=== PATIENT | male | born 1990 | race Caucasian/White ===

== ENCOUNTER 2020-10-24 05:48 | Emergency (ER) | payer OTHER, SELFPAY ==
--- NOTE | 2020-10-24 06:04 | ED_ITS ---
HPI - Headache General Chief Complaint: Recheck/Abnormal Lab/Rx Stated Complaint: Headache and sore throat. Known COVID exposure Time Seen by Provider: 10/24/20 05:51 Source: patient Mode of arrival: Ambulatory Limitations: no limitations History of Present Illness HPI Narrative: 30M nonsmoker without medical problems presents with a vague generalized headache and sore throat since last night. He denies any specific provocation or palliation of his headache. He says it's moderate in nature and not associated with blurred vision, trouble with speech or other focal neurologic symptoms. He's had no injury or fever. He has a sore throat but no difficulty swallowing. He's had no cough, shortness of breath, or chest pain. He was recently out of state doing training with a friend who turned out to be COVID positive in the absence of any symptoms. The patient states he is here for a COVID test. MD Complaint: headache Onset (ago): hour(s) Onset description: gradual Location: diffuse Severity: mild Relieving factors: nothing Exacerbating factors: none Context: occurred at rest Treatments prior to arrival: none Review of Systems Constitutional Constitutional: Denies chills, Denies fatigue, Denies fever(s), Denies frequent falls, Reports headache(s), Denies lethargy and Denies weakness Eyes Eyes: Denies change in vision, Denies eye discharge, Denies irritation and Denies loss of vision ENT Ears, Nose, Mouth, and Throat: Denies change in voice, Denies dizziness, Reports headache(s), Denies neck pain, Reports sore throat and Denies throat swelling Cardiovascular Cardiovascular: Denies chest pain, Denies irregular heart rhythm, Denies lightheadedness, Denies palpitations, Denies dyspnea, Denies dyspnea on exertion and Denies orthopnea Respiratory Respiratory: Denies cough, Denies dyspnea, Denies dyspnea on exertion and Denies wheezing Gastrointestinal Gastrointestinal: Denies abdominal pain, Denies change in bowel habits, Denies diarrhea, Denies nausea and Denies vomiting Musculoskeletal Musculoskeletal: Denies neck pain and Denies numbness Integumentary/Breasts Skin/Breast: Denies pruritus, Denies erythema, Denies rash and Denies wounds Neurologic Neurologic: Denies behavioral changes, Denies confusion, Denies dizziness, Denies frequent falls, Reports headache(s), Denies loss of vision, Denies numbness and Denies weakness Psychiatric Psychiatric: Denies anxiety, Denies behavioral changes, Denies confusion, Denies depression, Denies homicidal ideation and Denies suicidal ideation Endocrine Endocrine: Denies fatigue, Denies flushing and Denies palpitations Hematologic/Lymphatic Hematologic/Lymphatic: Denies easy bruising Allergic/Immunologic Allergic/Immunologic: Denies urticaria, Denies throat swelling and Denies wheezing Patient History Social History Smoking Status: Never smoker Smoking Status: Never smoker alcohol intake frequency: 0-2 drinks per day Substance Use Type: does not use Exam Narrative Exam Narrative: GEN: AOx3 and in mild distress EYES: Pupils are equal, round, and reactive to light and accommodation. Extraoccular muscles are intact bilaterally. There is no subconjunctival hemorrhage or exudate. ENT: no erythema, tonsillar swelling or exuate. No lymphadenopathy CHEST: Lungs are clear to auscultation bilaterally and free of wheezes, rales, or rhonchi. Heart rate is regular rhythm, there are no murmurs, clicks, rubs, or gallops. There is no chest wall tenderness. ABD: Abdomen is soft and nontender. There is no guarding or rebound. Bowel sounds are normal in all 4 quadrants. There is no mass or organomegaly. EXT: Full painless ROM of all extremities with no loss of sensation or strength. SKIN: Warm, pink, and dry. No erythema or rash Initial Vital Signs Initial Vital Signs: Vital Signs Respiratory Rate 20 10/24/20 06:10 Blood Pressure 170/109 H 10/24/20 06:10 Pulse Oximetry 96 10/24/20 06:10 Course Orders Ordered: ED Orders 10/24/20 06:02 COVID19 Stat MDM - Headache Lab Data Labs: Lab Results 10/24/20 Range/Units 06:00 COVID-19 PCR Negative (Negative) Discharge Plan Departure Patient Disposition: Home Clinical Impression: Headache Qualifiers: Headache type: unspecified Headache chronicity pattern: acute headache Intractability: not intractable Qualified Code(s): R51.9 - Headache, unspecified Instructions: Coronavirus Disease 2019 Activity Restrictions/Additional Instructions: *You have been diagnosed with [Exposure to COVID-19] *What to do: * per recommendations from the CDC and the [facility] Department of Health you need to quarantine for 14 days from the time of exposure * stay home except to get medical care. Restrict activities outside your home, except for getting medical care. Do not go to work, school, or public areas. Avoid using public transportation, ride sharing, or taxis. * separate yourself from other people in your home. * call ahead before visiting your doctor * Wear a facemask * Cover your coughs and sneezes * Clean your hands often * Avoid sharing household items * Clean all high-touch services every day * Monitor your symptoms and seek prompt medical attention if your illness is worsening, particularly with difficulty in breathing.
[2020-10-24 06:10] VITALS: BP 170/109; RESP 20; O2SAT 96
--- NOTE | 2020-10-24 06:12 | PC.NURSE ---
Here to have covid test after possible exposure,no sob.alert.
[2020-10-24 06:44] LABS: COVID19 -Nasal RAPID Negative (Negative)
[2020-10-24 07:03] VITALS: BP 129/82; PULSE 80; RESP 16; O2SAT 99
== END 2020-10-24 07:00 | disposition home or self-care (01) ==
PROVIDERS: Emergency Provider Emergency Medicine
DX: R51.9 Headache, unspecified (principal); J02.9 Acute pharyngitis, unspecified; Z20.828 Contact with and (suspected) exposure to other viral communicable diseases
CPT/HCPCS: 87635; 99282